=== PATIENT | female | born 1970 | race African-American/Black ===

== ENCOUNTER → 2017-08-24 | Outpatient (CLI) | payer BC | LOC: MC.RAD 14:23 | DX: Z12.31 Encounter for screening mammogram for malignant neoplasm of breast (principal) ==

== ENCOUNTER 2018-06-21 13:26 | Outpatient (RCR) | payer OTHER | END 2018-09-05 | disposition home or self-care (01) | LOC: WSOH | DX: M25.512 Pain in left shoulder (principal); M25.511 Pain in right shoulder; M54.5 Low back pain; S80.00XA Contusion of unspecified knee, initial encounter; W10.8XXA Fall (on) (from) other stairs and steps, initial encounter; Y93.01 Activity, walking, marching and hiking; Y92.214 College as the place of occurrence of the external cause; Y99.0 Civilian activity done for income or pay ==

== ENCOUNTER → 2019-11-08 | Outpatient (CLI) | payer BC | LOC: MC.RAD 09:44 | DX: Z00.00 Encounter for general adult medical examination without abnormal findings (principal); Z12.31 Encounter for screening mammogram for malignant neoplasm of breast ==

== ENCOUNTER → 2020-09-11 | Outpatient (CLI) | payer BC | LOC: COL.RAD 08-29 12:45 | DX: N83.201 Unspecified ovarian cyst, right side (principal); R53.82 Chronic fatigue, unspecified; Q56 Indeterminate sex and pseudohermaphroditism; E55.9 Vitamin D deficiency, unspecified; Z98.890 Other specified postprocedural states; G47.00 Insomnia, unspecified; Z90.710 Acquired absence of both cervix and uterus ==